=== PATIENT | male | born 1985 | race Caucasian/White ===

== ENCOUNTER 2021-10-24 20:12 | Emergency (ER) | payer SELFPAY ==
[2021-10-24] MEDS ORDERED: Famotidine/PF 20 mg/2ml Vial ONE (21:42)
[2021-10-24] MEDS ORDERED: Dexamethasone 10 MG/ML VIAL ONE (21:43)
== END 2021-10-24 23:34 | disposition home or self-care (01) ==
LOC: ERS 20:12
DX: T78.2XXA Anaphylactic shock, unspecified, initial encounter (principal)
CPT/HCPCS: 96374; 96375; J1100; S0028